=== PATIENT | female | born 1950 | race Hispanic/Latino ===

== ENCOUNTER 2018-03-17 17:58 | Emergency (ER) | payer OTHER ==
[~2018-03-17 17:58] MED LIST: ASPI-1012 PO; ATOR40TA69 PO; ATOR40TA71 PO; CARV3.12 PO; DOCU240C88 PO; FAMO20TA8 PO; FURO20TA6 PO; GEMF600T4 PO; INSU100V SQ; ISOS30TA6 PO; LOSA25TA16 PO; MACR100 PO; NITR0.4T SL; OXYB5TAB PO; PRAS10TA6 PO
[2018-03-17 18:41] LABS: BASOPHILS % (AUTO) 0.8 % (0.0-5.0); EOSINOPHILS % (AUTO) 1.1 % (0.0-8.0); HEMATOCRIT 35.6 % (36-48); LYMPHOCYTES % (AUTO) 13.7 % (21.0-51.0); MEAN CORPUSCULAR HEMOGLOBIN 25.8 pg (27.0-33.0); MEAN CORPUSCULAR HGB CONC 30.9 g/dL (32.0-36.0); MEAN CORPUSCULAR VOLUME 83.8 fL (79-99); MONOCYTES % (AUTO) 5.1 % (3.0-13.0); NEUTROPHILS % (AUTO) 79.3 % (40.0-77.0); PLATELET COUNT (AUTO) 105 K/uL (130-400); RED BLOOD CELL COUNT(AUTO) 4.25 MIL/uL (4.00-5.50); RED CELL DISTRIBUTION WIDTH 15.7 % (11.0-15.5); WHITE BLOOD COUNT (AUTO) 7.7 K/uL (4.8-10.8)
[2018-03-17 18:49] LABS: CREATININE 2.6 mg/dL (0.5-1.5)
[2018-03-17 18:54] LABS: ALBUMIN 3.2 g/dL (3.5-5.0); BILIRUBIN,TOTAL 0.6 mg/dL (0.2-1.0); TOTAL PROTEIN, SERUM 6.7 g/dL (6.0-8.3)
== END 2018-03-17 19:40 | disposition home or self-care (01) ==
LOC: EDH 17:58
DX: R53.1 Weakness (principal); R05 Cough; I11.0 Hypertensive heart disease with heart failure; I50.9 Heart failure, unspecified; E11.9 Type 2 diabetes mellitus without complications; E78.5 Hyperlipidemia, unspecified; Z79.4 Long term (current) use of insulin; Z88.1 Allergy status to other antibiotic agents
CPT/HCPCS: 36415; 71045; 80053; 83880; 84484; 85025; 87804; 93005

== ENCOUNTER 2018-09-29 19:56 | Observation (INO) | payer OTHER ==
[~2018-09-29] VITALS: Ht 147.3 cm; Wt 105.2 kg
[~2018-09-29 19:56] MED LIST changes: -GEMF600T4 PO; +GEMF600T5 PO; -LOSA25TA16 PO; +LOSA25TA41 PO
[2018-09-29 20:26] LABS: BASOPHILS % (AUTO) 0.5 % (0.0-5.0); EOSINOPHILS % (AUTO) 0.1 % (0.0-8.0); HEMATOCRIT 35.7 % (36-48); LYMPHOCYTES % (AUTO) 6.6 % (21.0-51.0); MEAN CORPUSCULAR HEMOGLOBIN 26.1 pg (27.0-33.0); MEAN CORPUSCULAR VOLUME 81.8 fL (79-99); MONOCYTES % (AUTO) 4.8 % (3.0-13.0); PLATELET COUNT (AUTO) 156 K/uL (130-400); RED BLOOD CELL COUNT(AUTO) 4.37 MIL/uL (4.00-5.50); RED CELL DISTRIBUTION WIDTH 14.7 % (11.0-15.5); WHITE BLOOD COUNT (AUTO) 10.4 K/uL (4.8-10.8)
[2018-09-29 20:38] LABS: INR 1.01 (0.85-1.15); PARTIAL THROMBOPLASTIN TIME 22.1 SEC (26.3-35.5); PROTHROMBIN TIME 10.6 SEC (9.6-11.6)
[2018-09-29 20:40] LABS: ALBUMIN 3.4 g/dL (3.5-5.0); BILIRUBIN,TOTAL 0.4 mg/dL (0.2-1.0); POTASSIUM 4.7 mmol/L (3.5-5.1)
[2018-09-29 21:10] LABS: B-TYPE NATRIURETIC PEPTIDE 754 pg/mL (0-100)
[2018-09-29] MEDS ORDERED: ASPIRIN 325 MG TABLET ONE (21:10)
[2018-09-29] MEDS ORDERED: LEVOFLOXACIN 500 MG/D5W 100 ML 100 ML ONE (21:10)
[2018-09-29] MEDS ORDERED: NITROGLYCERIN 1GM/1 INCH PACKET TD ONE (21:11)
[2018-09-29] MEDS ORDERED: INSULIN HUMULIN R 100 UNIT/ML 3ML ONE (21:11)
[2018-09-30] VITALS (7 sets, daily range): BP systolic 96–126; BP diastolic 59–72
[2018-09-30] MEDS ORDERED: FUROSEMIDE 10 MG/ML 4ML VIAL ONE (01:17)
[2018-09-30] MEDS ORDERED: ACETAMINOPHEN 325 MG TAB PO PRN (02:00)
[2018-09-30] MEDS ORDERED: ONDANSETRON HCL 4 MG/2 ML VIAL IVP PRN (02:00)
[2018-09-30] MEDS ORDERED: IPRATROPIUM/ALBUTEROL SULFATE 3 ML SOLUTION IH PRN (02:00)
[2018-09-30 02:02] LABS: BILIRUBIN,URINE Negative (NEGATIVE); COLOR,URINE Yellow (YELLOW); GLUCOSE, URINE (UA) >=1000 mg/dL (NEGATIVE); KETONES,URINE Negative (NEGATIVE); LEUKOCYTE ESTERASE ,URINE Trace (NEGATIVE); NITRATE,URINE Negative (NEGATIVE); OCCULT BLOOD,URINE Negative (NEGATIVE); PH,URINE 5.5 (5.0-8.0); PROTEIN,URINE Negative (NEGATIVE)
[2018-09-30] MEDS ORDERED: BUSP5TAB3 PO (02:02)
[2018-09-30] MEDS ORDERED: MONT10TA24 PO (02:02)
[2018-09-30] MEDS ORDERED: GABA-529 PO (02:02)
[2018-09-30] MEDS ORDERED: ALBU8.5H8 IH (02:02)
[2018-09-30] MEDS ORDERED: FURO40TA5 PO (02:02)
[2018-09-30 02:03] LABS: APPEARANCE,URINE SLIGHTLY CLOUDY (CLEAR)
[2018-09-30 02:12] LABS: BACTERIA,URINE Few /HPF (None Seen); RBC,URINE None Seen /HPF (0-1)
[2018-09-30 03:42] LABS: MEAN CORPUSCULAR HEMOGLOBIN 25.9 pg (27.0-33.0); MEAN CORPUSCULAR HGB CONC 31.5 g/dL (32.0-36.0); NUCLEATED RED BLOOD CELLS 0.2 % (0.0-0.19); PLATELET COUNT (AUTO) 145 K/uL (130-400); RED BLOOD CELL COUNT(AUTO) 4.14 MIL/uL (4.00-5.50); RED CELL DISTRIBUTION WIDTH 14.5 % (11.0-15.5); WHITE BLOOD COUNT (AUTO) 12.6 K/uL (4.8-10.8)
[2018-09-30 04:14] LABS: ALBUMIN 3.1 g/dL (3.5-5.0); BILIRUBIN,TOTAL 0.8 mg/dL (0.2-1.0); CREATININE 1.8 mg/dL (0.5-1.5); POTASSIUM 4.1 mmol/L (3.5-5.1); TOTAL PROTEIN, SERUM 6.6 g/dL (6.0-8.3)
[2018-09-30] MEDS: INSULIN HUMULIN R 100 UNIT/ML 3ML SQ SCH ×4 (05:26→21:19)
--- NOTE | 2018-09-30 07:20 | NUR ---
ENCOUNTERED PATIENT LAYING ON BED IN A SEMI-BARRETO'S POSITION. PATIENT DENIES CHEST PAIN NOR SHORTNESS OF BREATH. FULL ASSESSMENT DONE. LOWER EXTREMITIES ARE SWOLLEN. CALL LIGHT WITHIN REACH. INSTRUCTED TO CALL FOR ASSISTANCE.
[2018-09-30] MEDS: FUROSEMIDE 10 MG/ML 4ML VIAL IVP SCH ×2 (09:14→21:15)
--- NOTE | 2018-09-30 10:30 | NUR ---
KELLY MATHURP IS IN TO SEE PATIENT. INFORMED HER THAT HOME MEDS ARE IN AND READY TO BE RECONCILED.
[2018-09-30] MEDS ORDERED: MONTELUKAST SODIUM 10 MG TAB PO PRN (11:15)
[2018-09-30] MEDS ORDERED: BUSPIRONE HCL 5 MG TABLET PO PRN (11:15)
[2018-09-30] MEDS ORDERED: ALBUTEROL SULFATE 0.083% 2.5 MG/3 ML INH IH PRN (11:15)
--- NOTE | 2018-09-30 12:43 | NUR ---
Nutrition Intervention: Nutrition consult for CHF education. Pt. admitted with Dx of CHF. Pt. on Heart Healthy diet with good p.o. intake, as per pt. Labs reviewed(Alb 3.1, BUN 47, Creat 1.8, GFR 30, BG 175). LBM: 09/29/18. SR-18, elastic. Pt. with 2+ Edema to BLE. BMI: 50.3, morbid obesity. Pt. educated on Low Sodium Diabetic diet and provided with education material. Pt. verbalized understanding. Recommendations: 1) Rec. 60gm CCD Renal Non Dialysis diet. 2) Low Sodium Diabetic diet education given to patient. 3) Continue to monitor pt's nutritional status. 4) Consult RD as nutrition concerns arise. Addendum: 09/30/18 at [address] Amended: Links added.
--- NOTE | 2018-09-30 13:31 | NUR ---
DC PLAN VISITED WITH PATIENT. PATIENT LIVES WITH SPOUSE. INDEPENDENT ABLE TO PERFORM ADL'S. PATIENT HAS NO SERVICES. [facility]E AND WALKER AT HOME. FEELS SAFE TO RETURN HOME. GAVE INFO TO [facility] FOR PROVIDER SERVICES SAID THEY APPLIED TO MEDICAID BUT IT WOULD BE A WHILE. Addendum: 09/30/18 at 1333 by NI BRIGGS RN CM Amended: Links added.
[2018-09-30] MEDS: PRASUGREL HCL 10 MG TABLET PO SCH (13:40)
[2018-09-30] MEDS: LISINOPRIL 5 MG TABLET PO SCH (13:40)
[2018-09-30] MEDS: GABAPENTIN 100 MG CAPSULE PO SCH ×2 (13:41→21:14)
[2018-09-30] MEDS ORDERED: ATORVASTATIN CALCIUM 40 MG TABLET PO SCH (21:00)
[2018-09-30] MEDS: CARVEDILOL 3.125 MG TABLET PO SCH (21:14)
[2018-10-01 03:53] LABS: HEMATOCRIT 36.4 % (36-48); MEAN CORPUSCULAR HEMOGLOBIN 26.9 pg (27.0-33.0); MEAN CORPUSCULAR HGB CONC 32.7 g/dL (32.0-36.0); MEAN CORPUSCULAR VOLUME 82.5 fL (79-99); NUCLEATED RED BLOOD CELLS 0.1 % (0.0-0.19); PLATELET COUNT (AUTO) 170 K/uL (130-400); RED BLOOD CELL COUNT(AUTO) 4.41 MIL/uL (4.00-5.50); RED CELL DISTRIBUTION WIDTH 14.4 % (11.0-15.5); WHITE BLOOD COUNT (AUTO) 9.4 K/uL (4.8-10.8)
[2018-10-01 03:55] VITALS: BP 101/55
[2018-10-01 03:58] LABS: CREATININE 2.1 mg/dL (0.5-1.5); MAGNESIUM 2.2 mg/dL (1.80-2.40); POTASSIUM 3.9 mmol/L (3.5-5.1)
[2018-10-01 04:19] LABS: B-TYPE NATRIURETIC PEPTIDE 598 pg/mL (0-100)
[2018-10-01] MEDS: INSULIN HUMULIN R 100 UNIT/ML 3ML SQ SCH ×2 (06:10→11:41)
[2018-10-01 07:34] VITALS: BP 98/62
[2018-10-01] MEDS: FUROSEMIDE 10 MG/ML 4ML VIAL IVP SCH (09:00)
[2018-10-01] MEDS: CARVEDILOL 3.125 MG TABLET PO SCH (09:00)
[2018-10-01] MEDS: LISINOPRIL 5 MG TABLET PO SCH (09:00)
[2018-10-01] MEDS: GABAPENTIN 100 MG CAPSULE PO SCH ×2 (09:00→14:00)
[2018-10-01] MEDS: PRASUGREL HCL 10 MG TABLET PO SCH (10:32)
[2018-10-01 11:12] VITALS: BP 121/74
[2018-10-01] MEDS ORDERED: SACU1TAB PO (11:28)
[2018-10-01] MEDS ORDERED: FURO40TA5 PO ×2 (11:28)
[2018-10-01] MEDS ORDERED: FUROSEMIDE 40 MG TABLET PO SCH (11:45)
--- NOTE | 2018-10-01 14:08 | NUR ---
DR CALDERA NOTIFIED WITH RESULTS OF HOME O2 EVAL. PT WALKED IN HALLWAY BY RESPIRATORY THERAPY O2 SAT 94% . ORDERS DC HOME
--- NOTE | 2018-10-01 15:31 | NUR ---
DISCHARGE INSTRUCTIONS GIVEN TO PATIENT AND SPOUSE AT BEDSIDE. TEACH BACK METHOD UTILIZED TO EDUCATE PATIENT ON MEDICATIONS PRESCRIBED, CHANGES IN CURRENT MEDS, S/S TO MONITOR, WHEN TO CALL MD, DIET, AND F/U APPOINTMENTS. SPECIFIC INSTRUCTIONS GIVEN TO HOLD ENTRESTO IF SBP IS LESS THAN 100. PATIENT AND SPOUSE BOTH VERBALIZED UNDERSTANDING. PIV REMOVED. TIP WAS INTACT. TELE PACK REMOVED AND RETURNED. ALL BELONGINGS WERE PACKED AND TAKEN HOME.
== END 2018-10-01 15:15 | disposition home or self-care (01) ==
LOC: EDH 19:56 → EDHIP 23:35 → 2AH 09-30 01:28
PROVIDERS: ADMIT Internal Medicine Pulmonary Disease; ATTEND Internal Medicine Pulmonary Disease
DX: I11.0 Hypertensive heart disease with heart failure (principal); I50.23 Acute on chronic systolic (congestive) heart failure; E11.29 Type 2 diabetes mellitus with other diabetic kidney complication; E66.01 Morbid (severe) obesity due to excess calories; E78.5 Hyperlipidemia, unspecified; G47.30 Sleep apnea, unspecified; I25.10 Atherosclerotic heart disease of native coronary artery without angina pectoris; I25.2 Old myocardial infarction; I25.5 Ischemic cardiomyopathy; I25.82 Chronic total occlusion of coronary artery; T38.0X5A Adverse effect of glucocorticoids and synthetic analogues, initial encounter; Z79.02 Long term (current) use of antithrombotics/antiplatelets; Z79.899 Other long term (current) drug therapy; Z95.5 Presence of coronary angioplasty implant and graft; Z98.41 Cataract extraction status, right eye; Z98.42 Cataract extraction status, left eye; Z88.1 Allergy status to other antibiotic agents
CPT/HCPCS: 36415 ×3; 71045 ×2; 80048; 80053 ×2; 81001; 82550; 82948 ×6; 83605 ×2; 83735; 83880 ×2; 84484 ×2; 85025; 85027 ×2; 85610; 85730; 87040 ×2; 93005; 93306; 94664; 94760 ×2; 96372 ×2; 96374; 96376; 99291; A4600; G0378 ×40; J1815 ×4; J1940 ×3; J1956

== ENCOUNTER → 2019-02-17 | Outpatient (CLI) | payer OTHER ==
[~2019-02-17] MED LIST changes: +ALBU8.5H8 IH; -ASPI-1012 PO; -ATOR40TA69 PO; +BUSP5TAB3 PO; -DOCU240C88 PO; -FAMO20TA8 PO; -FURO20TA6 PO; +FURO40TA5 PO; +GABA-529 PO; -GEMF600T5 PO; -ISOS30TA6 PO; -LOSA25TA41 PO; -MACR100 PO; +MONT10TA24 PO; -NITR0.4T SL; -OXYB5TAB PO; +SACU1TAB PO
== END | disposition home or self-care (01) ==
LOC: RAH 09:06
PROVIDERS: ATTEND Family Medicine
DX: M17.11 Unilateral primary osteoarthritis, right knee (principal); M25.562 Pain in left knee
CPT/HCPCS: 73562